=== PATIENT | male | born 1990 | race Caucasian/White ===

== ENCOUNTER 2019-04-07 18:40 | Emergency (ER) | payer OTHER ==
[~2019-04-07] VITALS: Ht 182.9 cm; Wt 97.3 kg
[2019-04-07 22:59] LABS: BASO % 0.4 % (0.0-1.0); EOS # 0.2 10^3/uL (0.0-0.5); HEMATOCRIT 45.7 % (42.0-52.0); HEMOGLOBIN 15.5 g/dl (13.5-17.5); LYMPH # 2.2 10^3/uL (1.5-5.0); MEAN CORPUSCULAR HEMOGLOBIN 31.1 pg (27.0-33.0); MEAN CORPUSCULAR HGB CONC 33.9 g/dl (32.0-36.5); MEAN CORPUSCULAR VOLUME 91.8 fl (80.0-96.0); MONO # 1.2 10^3/uL (0.0-0.8); NEUTROPHILS # 6.5 10^3/uL (1.5-8.5); NEUTROPHILS % 63.1 % (36.0-66.0); PLATELET COUNT, AUTOMATED 370 10^3/uL (150-450); RED BLOOD COUNT 4.98 10^6/uL (4.30-6.10); WHITE BLOOD COUNT 10.2 10^3/uL (4.0-10.0)
[2019-04-07 23:18] LABS: ERYTHROCYTE SEDIMENTATION RATE 20 mm/hr (0-15)
[2019-04-07 23:23] LABS: C REACTIVE PROTEIN QUANTITATIV 1.4 MG/DL (0.00-0.30); URIC ACID 7.5 MG/DL (3.5-7.2)
[2019-04-07] MEDS ORDERED: NAPR-885 PO (23:39)
[2019-04-08 00:29] VITALS: BP 131/73
[2019-04-08] MEDS ORDERED: NAPROXEN 250 MG TAB PO ONE (00:30)
--- NOTE | 2019-04-08 03:18 | REP ---
Clinical: Pain and swelling . Technique: AP, lateral, bilateral oblique views of the left elbow. Findings: Lateral view best suggests effusion and swelling. The osseous structures are intact. No obvious acute fracture or dislocation. Impression: Swelling and possible effusion. Electronically Signed by Florin Lakhani MD 04/08/2019 03:10 A
== END 2019-04-08 00:32 | disposition home or self-care (01) ==
LOC: M ED 18:40
DX: M70.32 Other bursitis of elbow, left elbow (principal); M25.422 Effusion, left elbow